=== PATIENT | female | born 1955 | race Caucasian/White ===

== ENCOUNTER → 2019-12-22 | Outpatient (CLI) | payer MEDICARE, OTHER ==
--- NOTE | 2019-12-22 13:52 | RAD ---
INDICATION: Reason: HISTORY OF L OVARIAN CYST, PELVIC PAIN AND DISCHARGE / Spl. Instructions: / History: COMPARISON: Not available at time of exam TECHNIQUE: Grayscale and color ultrasound images uterus and adnexa. Transvaginal images obtained FINDINGS: Uterus: 53 x 37 mm. Endometrial Stripe: 11 mm. Right ovary is obscured. Nabothian cyst. Cystic lesion of the left adnexa which could be 2 cysts adjacent to each other or a complex cyst with a septation with vascular flow within the septation. The dominant component measures 52 x 45 mm with adjacent 30 x 25 x 13 mm cystic component. IMPRESSION: * There is thickening of the endometrial stripe for a postmenopausal patient. This can be seen with endometrial hyperplasia with endometrial neoplasm also within the differential. Follow-up could be obtained to ensure that this decreases. * There are either 2 cysts adjacent to each other at the left ovary or a complex cystic lesion with a septation. Follow-up could be obtained to ensure no increase. Electronically signed by: Garfield Cope MD (12/22/2019 1:48 PM) [id number]
== END | disposition home or self-care (01) ==
LOC: US 10:03
PROVIDERS: ATTEND Physician Assistant
DX: N83.292 Other ovarian cyst, left side (principal); N88.8 Other specified noninflammatory disorders of cervix uteri
CPT/HCPCS: 76830

== ENCOUNTER → 2021-09-12 | Outpatient (CLI) | payer MEDICARE, OTHER ==
--- NOTE | 2021-09-12 17:22 | RAD ---
CT abdomen and pelvis without contrast: Reason for examination: Hematuria. Acute cystitis and left flank pain. Comparison is made to previous study dated 01/26/2013. Helical images were obtained through the abdomen and pelvis with no intravenous or oral contrast admi nistered. Reconstruction was performed in sagittal and coronal planes. Exposure: One or more of the following individualized dose reduction techniques were utilized for thi s examination: 1. Automated exposure control 2. Adjustment of the mA and/or kV according to patient size 3. Use of iterative reconstruction technique. The lung bases are clear. The heart size is normal with no pericardial effusion evident. The liver appears to be homogeneous but there does appear to be some fatty infiltration present. No abnormality seen at the spleen, adrenal glands or pancreas. The gallbladder surgically absent. The abdominal aorta and inferior vena cava show no acute abnormalities. The colon shows presence of scattered diverticuli without diverticulitis or colitis. No abnormality s een at the appendix. The small intestinal tract shows no abnormal dilatation, wall thickening or obst ruction. No abnormality seen stomach or duodenum. The kidneys show no renal masses, renal calculi, hydronephrosis or evidence of obstructive uropathy. No abnormality seen at the bladder, uterus or right ovary. There continues to be a cystic lesion in o r adjacent to the left ovary measuring 5.8 x 4.2 x 4.9 cm in greatest AP, transverse and craniocaudal dimensions. This has enlarged from previous exam at which time it measured 4.9 x 3.6 x 4.3 cm in gre atest dimensions. No free fluid or free air is seen in the abdomen or pelvis. There continue to be postop changes at the L5-S1 level. There is a thoracolumbar scoliosis with degen erative changes which have also progressed since previous exam. IMPRESSION: Fatty liver. Diverticuli in the colon but no evidence of diverticulitis. 5.8 x 4.2 x 4.9 cm cystic lesion in or adjacent to the left ovary which has increased in size from 4. 9 x 3.6 x 4.3 cm in greatest dimension on previous examination in 2013. No hydronephrosis, renal calculi or evidence of obstructive uropathy. Thoracolumbar scoliosis with severe degenerative spondylosis. Electronically signed by: Claudette Mcpherson MD (09/12/2021 5:19 PM) [facility]
== END ==
LOC: LAB 16:41
PROVIDERS: ATTEND Specialist
DX: N30.01 Acute cystitis with hematuria (principal); K76.0 Fatty (change of) liver, not elsewhere classified; M41.85 Other forms of scoliosis, thoracolumbar region; M47.01 Anterior spinal artery compression syndromes
CPT/HCPCS: 74176